=== PATIENT | male | born 1965 | race Caucasian/White ===

== ENCOUNTER 2016-12-10 08:48 | Emergency (ER) | payer OTHER ==
[2016-12-10 09:22] VITALS: BP 148/90; PULSE 66; TEMP 97.8; BMI 27.3
[2016-12-10] MEDS ORDERED: IBUPROFEN 600 MG TABLET (FP) PO ONE (09:27)
[2016-12-10] MEDS ORDERED: IBUPROFEN 400 MG TABLET (FP) PO ONE (09:29)
--- NOTE | 2016-12-10 09:33 | PDOC ---
History of Present Illness - General Chief Complaint: Back Pain Stated Complaint: LOWER BACK PAIN Time Seen by Provider: 12/10/16 09:20 History Source: Patient Exam Limitations: No Limitations - History of Present Illness Initial Comments: 12/10/16 09:33 51 yr August PO states he was lifting heavy bag at work and pulled his lower back this AM. Pt denies any urine or bowel dysfunction neg leg numbness or tingling, no saddle anesthesia. Pt has no history of back pain or injury. Pt is ambulatory . Pain is reproducable with bending forward and movement. Past History - Past Medical History Allergies/Adverse Reactions: Allergies Allergy/AdvReac Type Severity Reaction Status Date / Time Penicillins Allergy Hives Verified 12/10/16 09:14 Home Medications: Ambulatory Orders No Home Medications 0 dose .ROUTE UTDICT 06/21/13 Cyclobenzaprine HCl [Flexeril 10 mg] 5 mg PO TID PRN #21 tablet 12/10/16 Naproxen [Naprosyn -] 500 mg PO BID PRN #28 tablet 12/10/16 Other medical history: DENIES. - Immunization History Immunization Up to Date: Yes - Psycho/Social/Smoking Cessation Hx Anxiety: No Suicidal Ideation: No Smoking Status: No Smoking History: Never smoked Number of Cigarettes Smoked Daily: 0 Hx Alcohol Use: Yes Substance Use Type: Alcohol Trauma Specific PMHX - Complaint Specific PMHX Arthritis: No Back Injury: No Neck Injury: No Hx Sacro Iliac Joint Dysfunction: No Review of Systems - Review of Systems Able to Perform ROS?: Yes Is the patient limited Azeri proficient: No Constitutional: No: Symptoms Reported HEENTM: No: Symptoms Reported Respiratory: No: Symptoms reported Cardiac (ROS): No: Symptoms Reported ABD/GI: No: Symptoms Reported : No: Symptoms Reported Musculoskeletal: Yes: Symptoms Reported, See HPI, Back Pain *Physical Exam - Vital Signs Last Vital Signs Temp Pulse Resp BP Pulse Ox 97.8 F 66 19 148/90 98 12/10/16 09:14 12/10/16 09:14 12/10/16 09:14 12/10/16 09:14 12/10/16 09:14 - Physical Exam General Appearance: Yes: Nourished, Appropriately Dressed HEENT: positive: EOMI, BJ Neck: positive: Supple Respiratory/Chest: positive: Lungs Clear, Normal Breath Sounds Cardiovascular: positive: Regular Rhythm, Regular Rate Musculoskeletal: positive: Normal Inspection, Decreased Range of Motion, Other ( TTP parapsinal lumbar soft tissue lower back left greater than right side ). negative: CVA Tenderness, CVA Tenderness (R), CVA Tenderness (L), Muscle Spasm, Vertebral Tenderness Extremity: positive: Normal Capillary Refill, Normal Inspection, Normal Range of Motion Integumentary: positive: Normal Color, Dry, Warm Neurologic: positive: Fully Oriented, Alert, Normal Mood/Affect, Normal Response , Motor Strength 01/07 Medical Decision Making - Medical Decision Making 12/10/16 09:35 cc: low back pain/strain after lifting a heavy bag will give motrin now, refer to ortho and employee health for clearance to go back to work neg urine or bowel dysfunction, neg leg numbness or weakness no saddle anesthesia no fever or recent URI pt ambualtory no acute distress *DC/Admit/Observation/Transfer Diagnosis at time of Disposition: Low back pain Qualifiers: Chronicity: acute Back pain laterality: bilateral Sciatica presence: without sciatica Qualified Code(s): M54.5 - Low back pain - Discharge Dispostion Disposition: HOME Condition at time of disposition: Good - Prescriptions Prescriptions: Cyclobenzaprine HCl [Flexeril 10 mg] 5 mg PO TID PRN #21 tablet PRN Reason: Muscle Spasms Naproxen [Naprosyn -] 500 mg PO BID PRN #28 tablet PRN Reason: Back Pain - Referrals Referrals: Chano Givens [Primary Care Provider] - Bernardino Dia MD [Staff Physician] - - Patient Instructions Additional Instructions: Follow with the orthopedist if back pain worsens or persists take the medication as directed apply ice to lower back every 2hrs for 15 minutes for the next 24hrs then apply warm compresses return to ER for any worsening pain or symptoms follow with employee health - Post Discharge Activity Work/School Note: Back to Work
== END 2016-12-10 09:36 | disposition home or self-care (01) ==
LOC: JER 08:48
DX: S39.012A Strain of muscle, fascia and tendon of lower back, initial encounter (principal); X50.0XXA Overexertion from strenuous movement or load, initial encounter; X50.9XXA Other and unspecified overexertion or strenuous movements or postures, initial encounter; Y93.89 Activity, other specified; Y92.89 Other specified places as the place of occurrence of the external cause; Y99.0 Civilian activity done for income or pay
CPT/HCPCS: 99281-25